=== PATIENT | male | born 1980 | race Caucasian/White ===

== ENCOUNTER 2024-03-14 08:47 | Emergency (ER) | payer SELFPAY ==
[~2024-03-14] VITALS: Ht 193 cm; Wt 122.5 kg
[2024-03-14 08:57] VITALS: BP_SYST 140; PULSE 88; RESP 15; TEMP 97.9; O2SAT 95
[2024-03-14] MEDS ORDERED: ONDANSETRON HCL 4 MG/2 ML VIAL IVP ONE (09:30)
[2024-03-14] MEDS: ASPIRIN 81 MG TAB.CHEW PO ONE (09:44)
[2024-03-14 10:10] LABS: BASOPHILS # (AUTO) 0.2 K/uL (0.0-0.2); BASOPHILS % (AUTO) 1.5 % (0.0-2.0); EOSINOPHILS # (AUTO) 0.2 K/uL (0.0-0.4); EOSINOPHILS % (AUTO) 1.9 % (0.0-4.0); HEMATOCRIT 42.2 % (36-54); HEMOGLOBIN 14.5 g/dL (14.0-18.0); LYMPHOCYTES # (AUTO) 1.6 K/uL (1.0-5.5); LYMPHOCYTES % (AUTO) 14.5 % (20.5-51.5); MEAN CORPUSCULAR HEMOGLOBIN 35 pg (27-31); MEAN CORPUSCULAR HGB CONC 34 % (32-36); MEAN CORPUSCULAR VOLUME 102 fL (79.0-98.0); MONOCYTES # (AUTO) 0.8 K/uL (0.0-1.0); MONOCYTES % (AUTO) 7.4 % (1.7-9.3); NEUTROPHILS # (AUTO) 8.2 K/uL (1.8-7.7); NEUTROPHILS % (AUTO) 74.7 % (40.0-70.0); PLATELET COUNT (AUTO) 197 K/uL (130-430); RED BLOOD CELL COUNT(AUTO) 4.13 MIL/uL (4.2-6.2)
[2024-03-14 10:19] LABS: ANION GAP 14 (5-15); CALCIUM 8.6 mg/dL (8.4-11.0); CARBON DIOXIDE 25 mmol/L (23-29); CHLORIDE 101 mmol/L (98-107); GFR AFRICAN AMERICAN 191 mL/min (>90); GLUCOSE 160 mg/dL (74-106); SODIUM SERUM 140 mmol/L (136-145); UREA NITROGEN, BLOOD 4 mg/dL (8-21)
[2024-03-14 10:21] LABS: GFR NON AFRICAN-AMERICAN 158 mL/min (>90)
[2024-03-14] MEDS ORDERED: iohexoL 350 mgI/mL, 100 ML INFUS..BTL IV ONE (12:49)
[2024-03-14] MEDS ORDERED: ASPI-1393 PO (14:00)
[2024-03-14] MEDS ORDERED: METH-634 PO (14:00)
[2024-03-14 14:40] VITALS: BP_SYST 160; PULSE 85; RESP 18; TEMP 98.2; O2SAT 97
== END 2024-03-14 14:22 | disposition home or self-care (01) ==
LOC: SED 08:47
DX: R07.89 Other chest pain (principal); M54.9 Dorsalgia, unspecified; R11.0 Nausea; R53.83 Other fatigue; K21.9 Gastro-esophageal reflux disease without esophagitis; E66.9 Obesity, unspecified; Z68.32 Body mass index [BMI] 32.0-32.9, adult; Z88.0 Allergy status to penicillin; Z88.2 Allergy status to sulfonamides; Z79.82 Long term (current) use of aspirin; Z79.899 Other long term (current) drug therapy
CPT/HCPCS: 99285; 71275; 71045; 80048; 83880; 85025; 85379; 84484; 36415; 93005; Q9967

== ENCOUNTER 2024-03-15 09:55 | Emergency (ER) | payer SELFPAY ==
[~2024-03-15] VITALS: Ht 193 cm; Wt 117.9 kg
[~2024-03-15 09:55] MED LIST: ASPI-1393 PO; METH-634 PO
[2024-03-15 10:18] VITALS: BP_SYST 141; PULSE 72; RESP 18; TEMP 96.6; O2SAT 96
[2024-03-15 10:57] LABS: BASOPHILS % (AUTO) 0.3 % (0.0-2.0); EOSINOPHILS # (AUTO) 0.1 K/uL (0.0-0.4); EOSINOPHILS % (AUTO) 1.1 % (0.0-4.0); HEMATOCRIT 43.7 % (36-54); HEMOGLOBIN 14.9 g/dL (14.0-18.0); LYMPHOCYTES # (AUTO) 1.4 K/uL (1.0-5.5); LYMPHOCYTES % (AUTO) 10.9 % (20.5-51.5); MEAN CORPUSCULAR HEMOGLOBIN 35 pg (27-31); MEAN CORPUSCULAR HGB CONC 34 % (32-36); MEAN CORPUSCULAR VOLUME 102 fL (79.0-98.0); MONOCYTES # (AUTO) 0.7 K/uL (0.0-1.0); MONOCYTES % (AUTO) 5.8 % (1.7-9.3); NEUTROPHILS # (AUTO) 10.2 K/uL (1.8-7.7); NEUTROPHILS % (AUTO) 81.9 % (40.0-70.0); PLATELET COUNT (AUTO) 185 K/uL (130-430); RED BLOOD CELL COUNT(AUTO) 4.27 MIL/uL (4.2-6.2); RED CELL DISTRIBUTION WIDTH 12.6 % (9.0-15.0); WHITE BLOOD COUNT (AUTO) 12.5 K/uL (4.8-10.8)
[2024-03-15 11:13] LABS: INR 1.2 (0.80-1.20); PROTHROMBIN TIME 12.6 SECS (9.5-12.5)
[2024-03-15 11:23] LABS: ALANINE AMINOTRANSFERASE 16 U/L (12-78); ALBUMIN 3.2 g/dL (3.4-4.8); ANION GAP 15 (5-15); ASPARTATE AMINOTRANSFERASE 94 U/L (10-37); BILIRUBIN,DIRECT 0.4 mg/dL (0.0-0.3); CARBON DIOXIDE 22 mmol/L (23-29); CHLORIDE 98 mmol/L (98-107); CREATINE KINASE, TOTAL 81 U/L (39-308); CREATININE 0.64 mg/dL (0.55-1.30); GFR AFRICAN AMERICAN 177 mL/min (>90); GLUCOSE 141 mg/dL (74-106); POTASSIUM 4.4 mmol/L (3.5-5.1); SODIUM SERUM 135 mmol/L (136-145); THYROID STIMULATING HORMONE 4.66 uIu/mL (0.34-4.82); TOTAL BILIRUBIN 0.8 mg/dL (0.0-1.0); TOTAL PROTEIN, SERUM 8.5 g/dL (6.4-8.3); UREA NITROGEN, BLOOD 6 mg/dL (8-21)
[2024-03-15 11:24] LABS: GFR NON AFRICAN-AMERICAN 146 mL/min (>90)
[2024-03-15 11:40] LABS: BILIRUBIN,URINE 2+ (NEGATIVE); CLARITY/URINE CLEAR (CLEAR); COLOR,URINE YELLOW (YELLOW); GLUCOSE,URINE NEGATIVE (NEGATIVE); KETONES,URINE 3+ (NEGATIVE); LEUKOCYTE ESTERASE ,URINE NEGATIVE (NEGATIVE); NITRITE, URINE NEGATIVE (NEGATIVE); PROTEIN URINE 1+ (NEGATIVE)
[2024-03-15 11:52] LABS: ACETONE, SERUM NEGATIVE (NEGATIVE)
[2024-03-15 12:22] LABS: BLOOD, URINE TRACE (NEGATIVE)
[2024-03-15 12:31] LABS: BACTERIA,URINE FEW /HPF (None Seen); WBC,URINE 0-3 /HPF (0-3)
[2024-03-15 14:35] VITALS: BP_SYST 159; PULSE 73; RESP 18; TEMP 98.4; O2SAT 96
== END 2024-03-15 14:35 | disposition home or self-care (01) ==
LOC: SED 09:55
DX: E11.9 Type 2 diabetes mellitus without complications (principal); R53.1 Weakness; R51.9 Headache, unspecified; Z88.0 Allergy status to penicillin; Z88.2 Allergy status to sulfonamides; Z79.82 Long term (current) use of aspirin; Z79.899 Other long term (current) drug therapy
CPT/HCPCS: 36415; 70450-TC; 71045; 80048; 80076; 81000; 81001; 81015; 82009; 82550; 83037; 83605; 84439; 84443; 84484; 85025; 85610; 85730; 93005; 99285